=== PATIENT | female | born 1935 | race Caucasian/White ===

== ENCOUNTER → 2018-01-20 | Outpatient (CLI) | payer OTHER ==
[~2018-01-20] MED LIST: ASPIRIN325; ASPIRIN325 PO; BENICAR20 MG; COLACE100 MG PO; COZAAR100 MG PO; CRESTOR5 MG; DEXILANT60 MG PO; FOLIC ACID1 MG PO; IMDUR 60 MG TAB60 M1 PO; IMDUR 60 MG TAB60 MG; LASIX 40 MG TAB40 MG PO; LEVOXYL112 MCG PO; MEDROLDOSEPACK PO; NEURONTIN600 MG; NEXIUM40 MG; OMEPRAZOLE40 MG PO; ONDANSETRON HCL4 M2 PO; OXYCODONE HCL5 MG PO; PRAVACHOL40 MG PO; PREDNISONE 10 M10 M1 PO; PROBIOTIC1 EAC1 PO; RANITIDINE HCL300 M1 PO; TOPROL XL50 MG PO; XARELTO10 MG PO
== END ==
LOC: M.RAD 12:36
DX: M79.671 Pain in right foot (principal)

== ENCOUNTER → 2018-02-19 | Outpatient (CLI) | payer OTHER | LOC: M.CT 12:22 | DX: M84.47 Pathological fracture, ankle, foot and toes (principal); G57.61 Lesion of plantar nerve, right lower limb ==

== ENCOUNTER → 2019-12-25 | Outpatient (CLI) | payer OTHER | LOC: M.LAB 08:04 | PROVIDERS: ATTEND Internal Medicine Gastroenterology | DX: Z01.812 Encounter for preprocedural laboratory examination (principal); K21.9 Gastro-esophageal reflux disease without esophagitis; R19.7 Diarrhea, unspecified ==

== ENCOUNTER → 2019-12-31 | Outpatient (CLI) | payer OTHER | LOC: M.LAB 05:42 | PROVIDERS: ATTEND Anesthesiology | DX: E87.6 Hypokalemia (principal) ==

== ENCOUNTER → 2020-02-05 | Outpatient (CLI) | payer OTHER | LOC: M.LAB 10:30 → M.MRI 10:30 | DX: G31.89 Other specified degenerative diseases of nervous system (principal); Z88.8 Allergy status to other drugs, medicaments and biological substances ==

== ENCOUNTER 2020-05-08 10:08 | Inpatient (IN) | payer OTHER ==
[~2020-05-08] VITALS: Ht 162.6 cm; Wt 73.5 kg
[2020-05-08 10:26] VITALS: BP 160/63
[2020-05-08] MEDS ORDERED: IMDUR 30 MG TAB30 M1 PO (10:57)
[2020-05-08] MEDS ORDERED: B12 ACTIVE1000 MCG PO (10:58)
[2020-05-08] MEDS ORDERED: LEVO-T100 MCG PO (10:58)
[2020-05-08] MEDS ORDERED: KLOR-CON M2020 MEQ PO (11:00)
[2020-05-08] MEDS ORDERED: D3 PO (11:00)
[2020-05-08] MEDS ORDERED: LORCET 5-325 M1 EACH PO (11:02)
[2020-05-08 11:23] LABS: ABSOLUTE BASOPHILS 0.1 thou/uL (0.0-0.2); ABSOLUTE EOSINOPHILS 0.1 thou/uL (0.0-0.7); ABSOLUTE LYMPHOCYTES 1.4 thou/uL (0.8-5.3); ABSOLUTE MONOCYTES 1.2 thou/uL (0.0-1.2); ABSOLUTE NEUTROPHILS 5.7 thou/uL (1.6-8.1); BASOPHILS 0.8 %; EOSINOPHILS 1.2 %; HEMATOCRIT 33.1 % (37.0-47.0); HEMOGLOBIN 11.7 gm/dL (12.0-15.0); LYMPHOCYTES 16.2 %; MCH 32.4 pg (26.0-34.0); MCHC 35.4 g/dL (28.0-37.0); MCV 91.6 fL (80.0-100.0); MONOCYTES 14.3 %; MPV 8.1 fl. (7.2-11.1); NUCLEATED RBCS 0 /100WBC; PLATELET COUNT* 220 thou/uL (150-400); POLYS 67.5 %; RBC 3.61 mil/uL (4.20-5.00); RDW-CV 13.2 % (10.5-14.5); WBC 8.4 thou/uL (4.0-11.0)
[2020-05-08 11:31] LABS: CALCIUM 8.4 mg/dL (8.5-10.1); POTASSIUM 3.7 mmol/L (3.5-5.1)
[2020-05-08 11:36] LABS: ALBUMIN 3.7 g/dL (3.4-5.0); TOTAL BILIRUBIN 1.1 mg/dL (<0.1-1.0)
[2020-05-08 14:02] VITALS: BP 106/62
[2020-05-08 14:06] VITALS: BP 146/64
[2020-05-08 22:30] VITALS: BP 157/71
[2020-05-09 03:57] LABS: ABSOLUTE EOSINOPHILS 0.2 thou/uL (0.0-0.7); ABSOLUTE LYMPHOCYTES 1.2 thou/uL (0.8-5.3); ABSOLUTE MONOCYTES 1.1 thou/uL (0.0-1.2); ABSOLUTE NEUTROPHILS 4.3 thou/uL (1.6-8.1); BASOPHILS 0.5 %; EOSINOPHILS 2.5 %; HEMATOCRIT 30.9 % (37.0-47.0); HEMOGLOBIN 11.1 gm/dL (12.0-15.0); LYMPHOCYTES 17.9 %; MCH 32.8 pg (26.0-34.0); MCHC 35.9 g/dL (28.0-37.0); MCV 91.4 fL (80.0-100.0); MONOCYTES 15.5 %; MPV 8.5 fl. (7.2-11.1); NUCLEATED RBCS 0 /100WBC; PLATELET COUNT* 188 thou/uL (150-400); POLYS 63.6 %; RBC 3.37 mil/uL (4.20-5.00); RDW-CV 13.4 % (10.5-14.5); WBC 6.8 thou/uL (4.0-11.0)
[2020-05-09 07:11] LABS: CALCIUM 8.4 mg/dL (8.5-10.1); CREATININE 0.9 mg/dL (0.6-1.3); POTASSIUM 3.5 mmol/L (3.5-5.1)
[2020-05-09 07:30] VITALS: BP 140/70
--- NOTE | 2020-05-09 10:18 | EKG ---
[place] [address] ELECTROCARDIOGRAM REPORT Name: NGOZI HERNANDEZ Room: [address] ADM IN .R.#: [id number] Admission: 05/08/20 Attend Phys: Tyler Carey, Discharge: Date of : 35 Date of Service: 05/08/20 1134 Report #: [id number] THIS REPORT FOR: //name// [facility] ED Test Date: 2020-05-08 Test Time: 11:34:56 Pat Name: NGOZI HERNANDEZ Department: Room: [facility] Gender: F [employer] Machine Worker: : 1935 Requested By: Truong Reynaga Order Number: [id number] MD: Alli Gutierrez Measurements Intervals [place] Rate: 72 P: 65 [place]: 135 QRS: 60 QRSD: 138 T: 15 QT: 422 QTc: 462 Interpretive Statements Sinus rhythm Right bundle branch block No previous ECG available for comparison Electronically Signed On 05-09-2020 10:18:11 [employer]ER by Alli Gutierrez [email or web address] <ELECTRONICALLY SIGNED> By: Alli Gutierrez MD, [facility] 05/09/20 1018 1134 1134 Alli Gutierrez MD, [facility] /EPI
[2020-05-09] MEDS ORDERED: TRAMADOL 50 MG50 MG PO (11:06)
[2020-05-09 12:00] VITALS: BP 140/70
[2020-05-09 13:09] VITALS: BP 140/70
[2020-05-09 13:14] VITALS: BP 140/70
[2020-05-09 13:45] VITALS: BP 140/70
== END 2020-05-09 13:45 | disposition home health service (06) | DRG 543 ==
LOC: M.ERS 10:08 → M.TBA-ER 12:23 → M.ORTHSURG 12:23
PROVIDERS: Family Medicine; ADMIT Internal Medicine; ATTEND Internal Medicine
DX: M80.021A Age-related osteoporosis with current pathological fracture, right humerus, initial encounter for fracture (principal); E87.1 Hypo-osmolality and hyponatremia; E03.9 Hypothyroidism, unspecified; I25.10 Atherosclerotic heart disease of native coronary artery without angina pectoris; K21.9 Gastro-esophageal reflux disease without esophagitis; I10 Essential (primary) hypertension; E78.5 Hyperlipidemia, unspecified; M19.90 Unspecified osteoarthritis, unspecified site; F03.90 Unspecified dementia, unspecified severity, without behavioral disturbance, psychotic disturbance, mood disturbance, and anxiety; Z96.651 Presence of right artificial knee joint; Z20.828 Contact with and (suspected) exposure to other viral communicable diseases; Z95.5 Presence of coronary angioplasty implant and graft; Z90.710 Acquired absence of both cervix and uterus; Z88.1 Allergy status to other antibiotic agents; Z88.8 Allergy status to other drugs, medicaments and biological substances; Z79.01 Long term (current) use of anticoagulants; Z79.82 Long term (current) use of aspirin; Z79.899 Other long term (current) drug therapy; Z87.891 Personal history of nicotine dependence; W17.89XA Other fall from one level to another, initial encounter; Y93.89 Activity, other specified; Y92.090 Kitchen in other non-institutional residence as the place of occurrence of the external cause